=== PATIENT | female | born 1980 | race Caucasian/White ===

== ENCOUNTER → 2017-05-07 | Outpatient (CLI) | payer BC ==
[2017-05-07 17:13] LABS: HEMOGLOBIN 13.6 gm/dl (12.3-15.3); RED BLOOD COUNT 4.19 M/UL (4.00-5.10); WHITE BLOOD COUNT 6.4 K/UL (4.5-11.0)
[2017-05-07 17:34] LABS: BUN/CREATININE RATIO 14 (0-10)
== END ==
LOC: LAB 16:32
PROVIDERS: Internal Medicine Cardiovascular Disease
DX: R00.2 Palpitations (principal)
CPT/HCPCS: 36415; 80053; 84443; 85025

== ENCOUNTER → 2021-05-02 | Outpatient (CLI) | payer BC ==
[2021-05-02 09:07] LABS: HEMOGLOBIN 14.2 gm/dl (12.3-15.3); RED BLOOD COUNT 4.39 M/UL (4.00-5.10); WHITE BLOOD COUNT 5.4 K/UL (4.5-11.0)
[2021-05-02 10:02] LABS: BUN/CREATININE RATIO 17 (0-10)
[2021-05-03 08:14] LABS: THYROXINE (T4) 8.2 ug/dL (4.5-12.0); VITAMIN D, 25-HYDROXY 16.9 ng/mL (30.0-100.0)
== END ==
LOC: LAB 08:21
PROVIDERS: Nurse Practitioner
DX: I10 Essential (primary) hypertension (principal); E78.5 Hyperlipidemia, unspecified; E55.9 Vitamin D deficiency, unspecified; R53.83 Other fatigue
CPT/HCPCS: 36415; 80053; 80061; 81001; 83036; 84436; 84443; 84480; 85025